=== PATIENT | female | born 1950 | race Caucasian/White ===

== ENCOUNTER → 2016-07-31 | Outpatient (CLI) | payer BC, MEDICARE ==
[~2016-07-31] MED LIST: GASTROGRAFIN SOLUTION 30ML (Q9963) As Ordered ONE; ISOVUE-370 76% 100ML VIAL (Q9967) As Ordered ONE
--- NOTE | 2016-08-01 00:41 | REP ---
Clinical: Hepatomegaly and complex cystic lesion. Correlation: Abdominal ultrasound dated 07/03/2016. Technique: Axial contrast enhanced images of the abdomen and pelvis from the lung bases to the pubic symphysis using oral and 100 ml Isovue 370 intravenous contrast material along with precontrast, arterial phase, and delayed images of the abdomen as well as coronal and sagittal re-formations. Findings: Lung bases are clear. Visualized heart and pericardium appear normal. The liver appears moderately enlarged measuring 21 cm craniocaudal length with 3 cm subtle blush in the posterior segment which may reflect flash filling hemangioma. There is a subtle nodular contour to the liver which may reflect underlying cirrhosis and correlation may be warranted. Spleen and pancreas appear normal. Adrenal glands demonstrate small bilateral benign adenomas measuring up to 2.3 cm in the lateral left limb. The kidneys demonstrate small bilateral benign appearing cysts - the largest of which is noted along the posterior aspect of the right kidney measuring 14 mm diameter. Evaluation of the enteric system demonstrates small hiatal hernia along with evidence for gastric bypass surgery. The small and large bowel is without obstruction or acute inflammatory process scattered colonic diverticula noted without acute diverticulitis. Pelvis demonstrates normal bladder and evidence for prior hysterectomy. No pelvic fluid or ascites. No adenopathy. No free air. Atherosclerotic changes of the aorta and branch vessels without aneurysm or dissection. Surrounding musculoskeletal structures demonstrate age-related changes without focal osseous abnormality. Impression: 1. Liver suggests hepatomegaly as well as possible cirrhosis and 3-cm benign flash filling hemangioma. 2. Bilateral benign adrenal adenomas. 3. Small bilateral simple appearing renal cysts up to 14 mm in the posterior right kidney. Signed by Alexander Cobian MD 08/01/2016 12:32 A
== END ==
LOC: M RAD 11:47
PROVIDERS: ATTEND Advanced Practice Midwife
DX: N28.0 Ischemia and infarction of kidney (principal)
CPT/HCPCS: 74178; Q9963; Q9967

== ENCOUNTER → 2016-11-04 | Outpatient (REF) | payer BC, MEDICARE ==
[2016-11-04 15:17] LABS: PERCENT SATURATION 3.4 % (13.2-37.4)
== END ==
LOC: M LAB REF 14:52
PROVIDERS: ATTEND Internal Medicine Medical Oncology
DX: E83.110 Hereditary hemochromatosis (principal)

== ENCOUNTER → 2016-11-05 | Outpatient (REF) | payer BC, MEDICARE | LOC: M LAB REF 16:58 | PROVIDERS: ATTEND Internal Medicine Medical Oncology | DX: K92.1 Melena (principal) ==

== ENCOUNTER → 2017-02-11 | Outpatient (CLI) | payer BC, MEDICARE ==
[~2017-02-11] VITALS: Ht 161.3 cm; Wt 87.5 kg
[~2017-02-11] MED LIST changes: +AMLO5TAB2 PO; +ASPI1TAB PO; +ASTE0.15; +ATOR1TAB19 PO; +CALC600T31 PO; +CITRTAB10 PO; +CLAR10CA3 PO; +FLUT1SPR2; -GASTROGRAFIN SOLUTION 30ML (Q9963) As Ordered ONE; -ISOVUE-370 76% 100ML VIAL (Q9967) As Ordered ONE; +JARD1TAB3 PO; +KETOROLAC; +KETOROLAC 0.4% OD; +LEVE1INJ5 SC; +LIDOCAINE 2% INJ 100 MG/5 ML SDV (FOR ANES.) As Ordered ONE; +LISI-542 PO; +NS 1,000 ML IV ONE; +PANT40TA2 PO; +POTA4.25 PO; +PRED1SUS OD; +PROPOFOL 200 MG/20 ML VIAL As Ordered ONE; +SUCR1TA PO
--- NOTE | 2017-02-11 12:12 | ROOR ---
Patient Name: Tamanna Richards Procedure Date: 02/11/2017 11:03 AM Date of : 1950 Age: 66 Room: [facility] Gender: Female Note Status: Finalized Procedure: Upper GI endoscopy Indications: Iron deficiency anemia Providers: Leobardo Barriga MD Referring MD: KWAN FRENCH MD Requesting Provider: Medicines: Monitored Anesthesia Care Complications: No immediate complications. Procedure: Pre-Anesthesia Assessment: - Prior to the procedure, a History and Physical was performed, and patient medications and allergies were reviewed. The patient is competent. The risks and benefits of the procedure and the sedation options and risks were discussed with the patient. All questions were answered and informed consent was obtained. Patient identification and proposed procedure were verified by the physician, the nurse and the anesthesiologist in the pre-procedure area in the endoscopy suite. Mental Status Examination: alert and oriented. Airway Examination: normal oropharyngeal airway and neck mobility. Respiratory Examination: clear to auscultation. CV Examination: normal. Prophylactic Antibiotics: The patient does not require prophylactic antibiotics. Prior Anticoagulants: The patient has taken no previous anticoagulant or antiplatelet agents. ASA Grade Assessment: II - A patient with mild systemic disease. After reviewing the risks and benefits, the patient was deemed in satisfactory condition to undergo the procedure. The anesthesia plan was to use monitored anesthesia care (MAC). Immediately prior to administration of medications, the patient was re-assessed for adequacy to receive sedatives. The heart rate, respiratory rate, oxygen saturations, blood pressure, adequacy of pulmonary ventilation, and response to care were monitored throughout the procedure. The physical status of the patient was re-assessed after the procedure. The Endoscope was introduced through the mouth, and advanced to the efferent jejunal loop. The upper GI endoscopy was accomplished without difficulty. The patient tolerated the procedure well. Findings: The examined esophagus was normal. The Z-line was regular and was found 38 cm from the incisors. Two 5 mm no bleeding angiodysplastic lesions were found in the stomach. One non-bleeding linear gastric ulcer with no stigmata of bleeding was found at the anastomosis. The lesion was 3 mm in largest dimension. shows healing The examined jejunum was normal. Impression: - Normal esophagus. - Z-line regular, 38 cm from the incisors. - Two non-bleeding angiodysplastic lesions in the stomach. - Non-bleeding gastric ulcer with no stigmata of bleeding. - Normal examined jejunum. - No specimens collected. Recommendation: - Discharge patient to home (ambulatory). Leobardo Barriga MD Leobardo Barriga MD 02/11/2017 12:11:32 PM This report has been signed electronically. Number of Addenda: 0 Note Initiated On: 02/11/2017 11:03 AM Estimated Blood Loss: Estimated blood loss: none.
--- NOTE | 2017-02-11 12:17 | ROOR ---
Patient Name: Tamanna Richards Procedure Date: 02/11/2017 11:04 AM Date of : 1950 Age: 66 Room: [facility] Gender: Female Note Status: Finalized Procedure: Colonoscopy Indications: Screening for colorectal malignant neoplasm Providers: Leobardo Barriga MD Referring MD: KWAN FRENCH MD Requesting Provider: Medicines: Monitored Anesthesia Care Complications: No immediate complications. Procedure: Pre-Anesthesia Assessment: - Prior to the procedure, a History and Physical was performed, and patient medications and allergies were reviewed. The patient is competent. The risks and benefits of the procedure and the sedation options and risks were discussed with the patient. All questions were answered and informed consent was obtained. Patient identification and proposed procedure were verified by the physician, the nurse and the anesthesiologist in the pre-procedure area in the endoscopy suite. Mental Status Examination: alert and oriented. Airway Examination: normal oropharyngeal airway and neck mobility. Respiratory Examination: clear to auscultation. CV Examination: normal. Prophylactic Antibiotics: The patient does not require prophylactic antibiotics. Prior Anticoagulants: The patient has taken no previous anticoagulant or antiplatelet agents. ASA Grade Assessment: II - A patient with mild systemic disease. After reviewing the risks and benefits, the patient was deemed in satisfactory condition to undergo the procedure. The anesthesia plan was to use monitored anesthesia care (MAC). Immediately prior to administration of medications, the patient was re-assessed for adequacy to receive sedatives. The heart rate, respiratory rate, oxygen saturations, blood pressure, adequacy of pulmonary ventilation, and response to care were monitored throughout the procedure. The physical status of the patient was re-assessed after the procedure. The Colonoscope was introduced through the anus and advanced to the cecum, identified by appendiceal orifice and ileocecal valve. The colonoscopy was technically difficult and complex due to significant looping, a tortuous colon and the patient's body habitus. Successful completion of the procedure was aided by changing the patient to a supine position, using manual pressure and applying abdominal pressure. The patient tolerated the procedure well. The quality of the bowel preparation was good. Findings: The perianal exam findings include non-thrombosed external hemorrhoids. A few small-mouthed diverticula were found in the sigmoid colon and descending colon. A 3 to 5 mm polyp was found in the cecum. The polyp was pedunculated. The polyp was removed with a hot snare. Resection and retrieval were complete. Estimated blood loss: none. A 12 mm polyp was found in the ascending colon. The polyp was sessile. The polyp was removed with a hot snare. Resection and retrieval were complete. Estimated blood loss: none. No additional abnormalities were found on retroflexion. Impression: - Non-thrombosed external hemorrhoids found on perianal exam. - Diverticulosis in the sigmoid colon and in the descending colon. - One 3 to 5 mm polyp in the cecum, removed with a hot snare. Resected and retrieved. - One 12 mm polyp in the ascending colon, removed with a hot snare. Resected and retrieved. Recommendation: - Discharge patient to home (ambulatory). - Repeat colonoscopy in 3 - 5 years for surveillance based on pathology results. - Telephone my office for pathology results in 2 weeks. Leobardo Barriga MD Leobardo Barriga MD 02/11/2017 12:16:28 PM This report has been signed electronically. Number of Addenda: 0 Note Initiated On: 02/11/2017 11:04 AM Estimated Blood Loss: Estimated blood loss: none.
[2017-02-11 12:42] VITALS: BP 136/60
== END | disposition home or self-care (01) ==
LOC: M OPP 10:14
PROVIDERS: ATTEND Surgery
DX: Z12.11 Encounter for screening for malignant neoplasm of colon (principal); D12.0 Benign neoplasm of cecum; D12.2 Benign neoplasm of ascending colon; K64.4 Residual hemorrhoidal skin tags; K57.30 Diverticulosis of large intestine without perforation or abscess without bleeding; D50.9 Iron deficiency anemia, unspecified; K31.819 Angiodysplasia of stomach and duodenum without bleeding; K25.9 Gastric ulcer, unspecified as acute or chronic, without hemorrhage or perforation; I10 Essential (primary) hypertension; E78.5 Hyperlipidemia, unspecified; R01.1 Cardiac murmur, unspecified; E11.9 Type 2 diabetes mellitus without complications; M10.9 Gout, unspecified; R12 Heartburn; E83.119 Hemochromatosis, unspecified; M19.90 Unspecified osteoarthritis, unspecified site; F32.9 Major depressive disorder, single episode, unspecified; G47.30 Sleep apnea, unspecified; R06.83 Snoring; R32 Unspecified urinary incontinence; Z98.84 Bariatric surgery status; Z85.828 Personal history of other malignant neoplasm of skin; Z87.891 Personal history of nicotine dependence; Z88.1 Allergy status to other antibiotic agents; Z88.8 Allergy status to other drugs, medicaments and biological substances; Z91.011 Allergy to milk products; Z88.0 Allergy status to penicillin; Z91.018 Allergy to other foods; Z79.82 Long term (current) use of aspirin; Z79.4 Long term (current) use of insulin; Z79.899 Other long term (current) drug therapy; Z80.1 Family history of malignant neoplasm of trachea, bronchus and lung

== ENCOUNTER → 2017-04-08 | Outpatient (REF) | payer BC, MEDICARE ==
[~2017-04-08] MED LIST changes: -LIDOCAINE 2% INJ 100 MG/5 ML SDV (FOR ANES.) As Ordered ONE; -NS 1,000 ML IV ONE; -PROPOFOL 200 MG/20 ML VIAL As Ordered ONE
[2017-04-08 13:57] LABS: PERCENT SATURATION 21.7 % (13.2-45.0)
[2017-04-10 00:07] LABS: ENDOMYSIAL ABY IgA Negative (Negative)
== END ==
LOC: M LAB REF 12:39
PROVIDERS: ATTEND Internal Medicine Medical Oncology
DX: D50.9 Iron deficiency anemia, unspecified (principal)

== ENCOUNTER → 2018-10-18 | Outpatient (REF) | payer BC, MEDICARE ==
[~2018-10-18] MED LIST changes: -AMLO5TAB2 PO; +AMLO5TAB6 PO; -PANT40TA2 PO; +PANT40TA3 PO; -PRED1SUS OD; +PRED1SUS2 OD
[2018-10-18 18:35] LABS: CRYSTALS, BODY FLUID CA PYROPHOSPHATE (NONE SEEN); SOURCE, BODY FLUID CRYSTALS RT KNEE
[2018-10-18 18:54] LABS: SOURCE, BODY FLUID RT KNEE; SYNOVIAL FLUID COLOR YELLOW (YELLOW)
[2018-10-18 19:15] LABS: MUCIN CLOT TEST 4+ (4+)
[2018-10-18 19:32] LABS: BODY FLUID RHEUMATOID SCREEN NEGATIVE (NEGATIVE)
[2018-10-18 19:33] LABS: SOURCE, BODY FLUID GLUCOSE RT KNEE; SOURCE, BODY FLUID URIC ACID RT KNEE; URIC ACID, BODY FLUID 6.4 MG/DL (NOT ESTABLISHED)
== END ==
LOC: M LAB REF 17:25
PROVIDERS: ATTEND Orthopaedic Surgery
DX: M25.561 Pain in right knee (principal)

== ENCOUNTER → 2019-03-04 | Outpatient (REF) | payer BC, MEDICARE ==
[~2019-03-04] MED LIST changes: -ASPI1TAB PO; +ASPI81TA26 PO
== END ==
LOC: M SFHCPLAZ 10:47
PROVIDERS: ATTEND Dermatology
DX: D49.2 Neoplasm of unspecified behavior of bone, soft tissue, and skin (principal)

== ENCOUNTER → 2019-04-18 | Outpatient (REF) | payer BC, MEDICARE ==
[2019-04-18 19:37] LABS: SOURCE, BODY FLUID LFT KNEE; SYNOVIAL FLUID COLOR YELLOW (YELLOW)
[2019-04-18 19:39] LABS: CRYSTALS, BODY FLUID NONE SEEN (NONE SEEN); SOURCE, BODY FLUID CRYSTALS LFT KNEE
[2019-04-18 19:57] LABS: MUCIN CLOT TEST 4+ (4+)
[2019-04-18 20:01] LABS: SOURCE, BODY FLUID GLUCOSE LFT KNEE; SOURCE, BODY FLUID URIC ACID LFT KNEE; URIC ACID, BODY FLUID 6.1 MG/DL (NOT ESTABLISHED)
[2019-04-20 07:56] LABS: BODY FLUID RHEUMATOID SCREEN NEGATIVE (NEGATIVE)
== END ==
LOC: M LAB REF 17:19
PROVIDERS: ATTEND Orthopaedic Surgery
DX: M25.462 Effusion, left knee (principal)

== ENCOUNTER → 2019-05-04 | Outpatient (REF) | payer BC, MEDICARE | LOC: M LAB REF 13:16 | PROVIDERS: ATTEND Internal Medicine Nephrology | DX: K91.2 Postsurgical malabsorption, not elsewhere classified (principal) ==

== ENCOUNTER → 2019-05-10 | Outpatient (REF) | payer BC, MEDICARE ==
[~2019-05-10] MED LIST changes: +TRUL10IN SC
== END ==
LOC: M SFHCPLAZ 17:18
PROVIDERS: ATTEND Dermatology
DX: C44.311 Basal cell carcinoma of skin of nose (principal)

== ENCOUNTER → 2019-07-11 | Outpatient (REF) | payer BC, MEDICARE | LOC: M LAB REF 19:18 | PROVIDERS: ATTEND Dermatology | DX: L57.0 Actinic keratosis (principal) ==

== ENCOUNTER → 2019-09-15 | Outpatient (CLI) | payer BC ==
[~2019-09-15] MED LIST changes: +CALC600T66 PO; +LISI10TA4 PO; +MAGN1CAP PO
[2019-09-15 17:27] LABS: ALBUMIN 3.9 GM/DL (3.2-5.2); BILIRUBIN,DIRECT 0.4 MG/DL (0.0-0.2); BILIRUBIN,TOTAL 1.6 MG/DL (0.2-1.0); TOTAL PROTEIN 7.7 GM/DL (6.4-8.2)
== END ==
LOC: M LAB 15:42
PROVIDERS: ATTEND Internal Medicine Gastroenterology
DX: D62 Acute posthemorrhagic anemia (principal)

== ENCOUNTER 2020-03-07 07:40 | Day surgery (SDC) | payer BC ==
[~2020-03-07 07:40] MED LIST changes: +AMLO1TAB24 PO; -AMLO5TAB6 PO; +PANT40TA29 PO; -PANT40TA3 PO
[2020-03-07] MEDS ORDERED: LIDOCAINE 2% 100MG/5ML SDV (FOR ANES.) ONE (08:06)
[2020-03-07] MEDS ORDERED: propofoL 500 MG/50 ML VIAL ONE (08:06)
[2020-03-07] MEDS ORDERED: propofoL 200 MG/20 ML VIAL ONE (08:30)
--- NOTE | 2020-04-04 11:34 | ROOR ---
Patient Name: Tamanna Richards Procedure Date: 03/07/2020 8:00 AM Date of : 1950 Age: 69 Room: [facility] Gender: Female Note Status: Carpenter Labor Supervisor Override Procedure: Colonoscopy Indications: High risk colon cancer surveillance: Personal history of colonic polyps Providers: Leobardo Barriga MD Referring MD: 1. No Referring Physician 1. No Referring Physician, Admin. Requesting Provider: Medicines: Monitored Anesthesia Care Complications: No immediate complications. Procedure: Pre-Anesthesia Assessment: - Prior to the procedure, a History and Physical was performed, and patient medications and allergies were reviewed. The patient is competent. The risks and benefits of the procedure and the sedation options and risks were discussed with the patient. All questions were answered and informed consent was obtained. Patient identification and proposed procedure were verified by the physician, the nurse and the paperhanger contractor in the endoscopy suite. Mental Status Examination: alert and oriented. Airway Examination: normal oropharyngeal airway and neck mobility. Respiratory Examination: clear to auscultation. CV Examination: normal. Prophylactic Antibiotics: The patient does not require prophylactic antibiotics. Prior Anticoagulants: The patient has taken no previous anticoagulant or antiplatelet agents. ASA Grade Assessment: III - A patient with severe systemic disease. After reviewing the risks and benefits, the patient was deemed in satisfactory condition to undergo the procedure. The anesthesia plan was to use monitored anesthesia care (MAC). Immediately prior to administration of medications, the patient was re-assessed for adequacy to receive sedatives. The heart rate, respiratory rate, oxygen saturations, blood pressure, adequacy of pulmonary ventilation, and response to care were monitored throughout the procedure. The physical status of the patient was re-assessed after the procedure. The Colonoscope was introduced through the anus and advanced to the cecum, identified by appendiceal orifice and ileocecal valve. The colonoscopy was somewhat difficult due to a redundant colon and a tortuous colon. Successful completion of the procedure was aided by applying abdominal pressure. The patient tolerated the procedure well. The quality of the bowel preparation was adequate to identify polyps. Findings: Skin tags were found on perianal exam. Multiple small-mouthed diverticula were found in the sigmoid colon and descending colon. There was no evidence of diverticular bleeding. Two flat polyps were found in the ascending colon. The polyps were 2 to 4 mm in size. These polyps were removed with a jumbo cold forceps. Resection and retrieval were complete. Estimated blood loss was minimal. A 2 to 3 mm polyp was found in the sigmoid colon. The polyp was sessile. The polyp was removed with a jumbo cold forceps. Resection and retrieval were complete. Estimated blood loss was minimal. The retroflexed view of the distal rectum and anal verge was normal and showed no anal or rectal abnormalities. Impression: - No specimens collected. Recommendation: - Discharge patient to home (ambulatory). - High fiber diet indefinitely. - Await pathology results. - Telephone my office for pathology results in 1 week. - Repeat colonoscopy in 5 years for surveillance of multiple polyps. Leobardo Barriga MD Leobardo Barriga MD 03/07/2020 9:06:16 AM Number of Addenda: 0 Note Initiated On: 03/07/2020 8:00 AM Estimated Blood Loss: Estimated blood loss was minimal.
[2020-06-06] MEDS ORDERED: CALC600C3 PO (11:06)
[2020-06-06] MEDS ORDERED: SUCR1TA PO (11:06)
== END 2020-03-07 09:40 | disposition home or self-care (01) ==
LOC: M SDC 07:40
PROVIDERS: ATTEND Surgery
DX: Z12.11 Encounter for screening for malignant neoplasm of colon (principal); Z86.010 Personal history of colon polyps; K57.30 Diverticulosis of large intestine without perforation or abscess without bleeding; K64.4 Residual hemorrhoidal skin tags; D12.2 Benign neoplasm of ascending colon; D12.5 Benign neoplasm of sigmoid colon; E11.9 Type 2 diabetes mellitus without complications; Z79.899 Other long term (current) drug therapy; Z88.0 Allergy status to penicillin; Z88.8 Allergy status to other drugs, medicaments and biological substances; Z91.018 Allergy to other foods; Z98.84 Bariatric surgery status

== ENCOUNTER → 2020-05-14 | Outpatient (CLI) | payer BC ==
--- NOTE | 2020-05-14 09:53 | REP ---
INDICATION: CIRRHOSIS OF LIVER COMPARISON: 07/03/2016 TECHNIQUE: Real time B-mode rai scale ultrasound examination using curved array transducer along with color Doppler evaluation of the hepatic vasculature. FINDINGS: Liver is normal in contour, size, echogenicity, and overall appearance no focal hepatic lesions are identified. The main portal vein is mildly dilated to 16 mm diameter. Color Doppler investigation demonstrates normal hepatic vascular flow direction, velocities, and wave patterns. The spleen is enlarged and measures 13.7 x 13.4 x 5.4 cm (splenic index 990), but without focal splenic lesion identified. The pancreas is incompletely evaluated due to interposed bowel gas but visualized portions appear normal. Evidence for prior cholecystectomy. Common bile duct is normal at 5.8 mm diameter. Kidneys are normal in reniform shape without hydronephrosis. Right kidney measures 10.4 x 4.7 x 3.9 cm with 1.7 x 1.1 x 1.6 cm upper pole simple cyst and 4 x 4 x 5 mm lower pole simple cyst. Left kidney measures 11.0 x 4.4 x 5.0 cm and includes 9 x 8 x 8 mm upper pole simple cyst and 9 x 8 x 8 mm exophytic rounded isodense lesion along the lower pole concerning for possible small mass. Abdominal aorta appears normal. No ascites. Main portal vein: 19.4 centimeters/second Right portal vein: 12.2 centimeters/second. Left portal vein: 20 centimeters/second Splenic vein: 23.2 centimeters/second Hepatic artery: 66 centimeters/second IMPRESSION: 1. Relatively normal appearance and Doppler evaluation of the liver. 2. Dilated main portal vein and splenomegaly suggests early portal venous hypertension. 3. Renal findings as described above including 9 mm possible left lower pole renal mass. Consider pre and postcontrast CT of the abdomen for further investigation. <Electronically signed by Alexander Cobian > 05/14/20 0950
[2020-05-14 11:31] LABS: BASO % 0.6 % (0.0-1.0); EOS # 0.1 10^3/uL (0.0-0.5); EOS % 2.2 % (0.0-3.0); HEMOGLOBIN 14.8 g/dl (12.0-15.5); LYMPH # 1.2 10^3/uL (1.5-5.0); LYMPH % 24.9 % (24.0-44.0); MEAN CORPUSCULAR HEMOGLOBIN 27.9 pg (27.0-33.0); MEAN CORPUSCULAR HGB CONC 31.5 g/dl (32.0-36.5); MEAN CORPUSCULAR VOLUME 88.7 fl (80.0-96.0); MONO # 0.3 10^3/uL (0.0-0.8); MONO % 6.2 % (0.0-5.0); NEUTROPHILS # 3.3 10^3/uL (1.5-8.5); NEUTROPHILS % 65.5 % (36.0-66.0); PLATELET COUNT, AUTOMATED 161 10^3/uL (150-450)
[2020-05-14 12:08] LABS: ALBUMIN 3.6 GM/DL (3.2-5.2); ALT/SGPT 43 U/L (12-78); BILIRUBIN,DIRECT 0.3 MG/DL (0.0-0.2); BILIRUBIN,TOTAL 1.2 MG/DL (0.2-1.0); BLOOD UREA NITROGEN 11 MG/DL (7-18); CREATININE FOR GFR 0.64 MG/DL (0.55-1.30); GLOMERULAR FILTRATION RATE > 60.0 (>45); IRON (FE) 76 UG/DL (50-170); PERCENT SATURATION 27.7 % (13.2-45.0); TOTAL IRON BINDING CAPACITY 274 UG/DL (250-450); TOTAL PROTEIN 7.3 GM/DL (6.4-8.2)
[2020-05-14 12:11] LABS: FOLATE 12.5 NG/ML; VITAMIN B12 LEVEL 261 PG/ML
== END ==
LOC: M RAD 08:17
PROVIDERS: ATTEND Internal Medicine Gastroenterology
DX: K74.60 Unspecified cirrhosis of liver (principal)

== ENCOUNTER → 2020-06-07 | Outpatient (CLI) | payer BC ==
[~2020-06-07] MED LIST changes: +CALC600C3 PO
== END ==
LOC: M LABSMTC 09:47
PROVIDERS: ATTEND Anesthesiology
DX: Z01.812 Encounter for preprocedural laboratory examination (principal); Z20.828 Contact with and (suspected) exposure to other viral communicable diseases

== ENCOUNTER 2020-06-12 08:52 | Day surgery (SDC) | payer BC ==
[~2020-06-12] VITALS: Ht 162.6 cm; Wt 90.3 kg
[~2020-06-12 08:52] MED LIST changes: +LIDOCAINE 2% 100MG/5ML SDV (FOR ANES.) As Ordered ONE; +NS 1,000 ML IV ONE; +fentaNYL 100 MCG/2 ML INJECTION (J3010) As Ordered ONE; +propofoL 200 MG/20 ML VIAL As Ordered ONE
--- NOTE | 2020-06-12 10:36 | ROOR ---
Patient Name: Tamanna Richards Procedure Date: 06/12/2020 10:02 AM Date of : 1950 Age: 70 Room: [facility] Gender: Female Note Status: Finalized Procedure: Upper GI endoscopy Indications: Cirrhosis rule out esophageal varices Providers: Raymundo Reaves MD Referring MD: Jason Humphrey Md Requesting Provider: Medicines: Monitored Anesthesia Care Complications: No immediate complications. Procedure: Pre-Anesthesia Assessment: - Prior to the procedure, a History and Physical was performed, and patient medications and allergies were reviewed. The patient is competent. The risks and benefits of the procedure and the sedation options and risks were discussed with the patient. All questions were answered and informed consent was obtained. Patient identification and proposed procedure were verified by the physician, the nurse and the anesthesiologist in the procedure room. Mental Status Examination: alert and oriented. Airway Examination: normal oropharyngeal airway and neck mobility. Respiratory Examination: clear to auscultation. CV Examination: normal. Prophylactic Antibiotics: The patient does not require prophylactic antibiotics. Prior Anticoagulants: The patient has taken no previous anticoagulant or antiplatelet agents. ASA Grade Assessment: II - A patient with mild systemic disease. After reviewing the risks and benefits, the patient was deemed in satisfactory condition to undergo the procedure. The anesthesia plan was to use monitored anesthesia care (MAC). Immediately prior to administration of medications, the patient was re-assessed for adequacy to receive sedatives. The heart rate, respiratory rate, oxygen saturations, blood pressure, adequacy of pulmonary ventilation, and response to care were monitored throughout the procedure. The physical status of the patient was re-assessed after the procedure. The Endoscope was introduced through the mouth, and advanced to the second part of duodenum. The upper GI endoscopy was accomplished without difficulty. The patient tolerated the procedure well. Findings: Two columns of non-bleeding grade I, small (< 5 mm) varices were found in the lower third of the esophagus,. No stigmata of recent bleeding were evident and no red reyna signs were present. The Z-line was regular and was found 39 cm from the incisors. Evidence of a Maritza-en-Y gastrojejunostomy was found. The gastrojejunal anastomosis was characterized by erythema and prior placed clip. This was traversed. The arwsa-fx-myatorc limb was characterized by healthy appearing mucosa. The jejunojejunal anastomosis was characterized by healthy appearing mucosa. The affnenma-sy-ycsyufa limb was not examined as it could not be found. Scattered mild inflammation characterized by erythema, friability and granularity was found in the gastric body. The examined jejunum was normal. Impression: - Non-bleeding grade I and small (< 5 mm) esophageal varices. - Z-line regular, 39 cm from the incisors. - Maritza-en-Y gastrojejunostomy with gastrojejunal anastomosis characterized by erythema and prior placed clip. - Gastritis. - Normal examined jejunum. - No specimens collected. Recommendation: - Patient has a contact number available for emergencies. The signs and symptoms of potential delayed complications were discussed with the patient. Return to normal activities tomorrow. Written discharge instructions were provided to the patient. - Post gastric bypass diet (small frequent meals and avoid fatty/ fried foods). - Continue present medications. - Give a beta howard with dosage titrated by the heart rate. - Return to GI clinic in [facility] (address [address], [address], [place] [address]) in 4 -- 6 weeks. Please call GI clinic @ [phone] for apppointment date and time. - Return to primary care physician. Raymundo Reaves MD Raymundo Reaves MD 06/12/2020 10:35:32 AM Electronically signed by Raymundo Reaves MD Number of Addenda: 0 Note Initiated On: 06/12/2020 10:02 AM Estimated Blood Loss: Estimated blood loss was minimal.
[2020-06-12 10:45] VITALS: BP 131/62
== END 2020-06-12 10:56 | disposition home or self-care (01) ==
LOC: M OPP 08:52
PROVIDERS: ATTEND Internal Medicine Gastroenterology
DX: I85.10 Secondary esophageal varices without bleeding (principal); K29.70 Gastritis, unspecified, without bleeding; K74.60 Unspecified cirrhosis of liver; E11.9 Type 2 diabetes mellitus without complications; G47.30 Sleep apnea, unspecified; Z98.84 Bariatric surgery status; Z79.899 Other long term (current) drug therapy; Z88.8 Allergy status to other drugs, medicaments and biological substances; Z91.018 Allergy to other foods
CPT/HCPCS: 43235; J3010

== ENCOUNTER → 2023-01-07 | Outpatient (CLI) | payer OTHER ==
[~2023-01-07] MED LIST changes: +INSU100I6 SC; -LEVE1INJ5 SC; -LIDOCAINE 2% 100MG/5ML SDV (FOR ANES.) As Ordered ONE; -LISI-542 PO; +LISI10TA22 PO; -LISI10TA4 PO; +LISI5TAB11 PO; -NS 1,000 ML IV ONE; -fentaNYL 100 MCG/2 ML INJECTION (J3010) As Ordered ONE; -propofoL 200 MG/20 ML VIAL As Ordered ONE
== END ==
LOC: M RAD 07:22
PROVIDERS: ATTEND Internal Medicine Gastroenterology
DX: K74.60 Unspecified cirrhosis of liver (principal); I85.00 Esophageal varices without bleeding; K76.0 Fatty (change of) liver, not elsewhere classified; K76.6 Portal hypertension

== ENCOUNTER 2023-06-29 10:57 | Day surgery (SDC) | payer OTHER ==
[~2023-06-29] VITALS: Ht 160 cm; Wt 90.0 kg
[~2023-06-29 10:57] MED LIST changes: +AZEL1SPR3; +INSU100I48 SQ; +RA M500C PO; +SEMA1PEN2 SC; +TRUL0.5I SC
[2023-06-29] MEDS ORDERED: propofoL 200 MG/20 ML VIAL As Ordered ONE (11:58)
[2023-06-29] MEDS ORDERED: fentaNYL 100 MCG/2 ML INJECTION As Ordered ONE (11:58)
[2023-06-29] MEDS ORDERED: LIDOCAINE 2% 100MG/5ML SDV (FOR ANES.) As Ordered ONE (11:58)
[2023-06-29 12:19] VITALS: TEMP 98.6
[2023-06-29 12:33] VITALS: BP 127/63; O2SAT 94
[2023-06-30] MEDS ORDERED: NS 1,000 ML IV ONE (06:00)
== END 2023-06-29 12:40 | disposition home or self-care (01) ==
LOC: M OPP 10:57
PROVIDERS: ATTEND Internal Medicine Gastroenterology
DX: K44.9 Diaphragmatic hernia without obstruction or gangrene (principal); I85.00 Esophageal varices without bleeding; Z98.84 Bariatric surgery status; Z87.891 Personal history of nicotine dependence; E11.9 Type 2 diabetes mellitus without complications; G47.30 Sleep apnea, unspecified; Z79.02 Long term (current) use of antithrombotics/antiplatelets; Z79.4 Long term (current) use of insulin; Z79.52 Long term (current) use of systemic steroids; Z79.899 Other long term (current) drug therapy; Z88.0 Allergy status to penicillin; Z88.1 Allergy status to other antibiotic agents; Z88.8 Allergy status to other drugs, medicaments and biological substances; Z91.011 Allergy to milk products; Z91.018 Allergy to other foods
CPT/HCPCS: 43235; J3010

== ENCOUNTER 2024-10-25 11:23 | Day surgery (SDC) | payer OTHER ==
[~2024-10-25] VITALS: Ht 162.6 cm; Wt 78.7 kg
[~2024-10-25 11:23] MED LIST changes: -CITRTAB10 PO; +CITRTAB11 PO; +LANTINJ4; +MIRA3350 PO; +SEMA2PEN
[2024-10-25] MEDS ORDERED: fentaNYL 100 MCG/2 ML INJECTION As Ordered ONE (13:02)
[2024-10-25] MEDS ORDERED: LIDOCAINE 2% 100MG/5ML SDV (FOR ANES.) As Ordered ONE (13:02)
[2024-10-25] MEDS ORDERED: propofoL 200 MG/20 ML VIAL As Ordered ONE (13:02)
[2024-10-25 13:22] VITALS: TEMP 97.5
[2024-10-25 13:37] VITALS: BP 150/81; O2SAT 97
== END 2024-10-25 13:46 | disposition home or self-care (01) ==
LOC: M OPP 11:23
PROVIDERS: ATTEND Internal Medicine Gastroenterology
DX: K31.7 Polyp of stomach and duodenum (principal); K74.60 Unspecified cirrhosis of liver; Z98.84 Bariatric surgery status; G47.30 Sleep apnea, unspecified; Z88.0 Allergy status to penicillin; Z88.1 Allergy status to other antibiotic agents; Z88.8 Allergy status to other drugs, medicaments and biological substances; Z91.018 Allergy to other foods; Z79.899 Other long term (current) drug therapy; Z79.85 Long-term (current) use of injectable non-insulin antidiabetic drugs
CPT/HCPCS: 43251; 88305; J3010

== ENCOUNTER → 2024-12-07 | Outpatient (REF) | payer OTHER | LOC: M SFHCDERM 09:11 | PROVIDERS: ATTEND Physician Assistant | DX: D48.9 Neoplasm of uncertain behavior, unspecified (principal); L82.1 Other seborrheic keratosis ==